=== PATIENT | female | born 1950 | race Caucasian/White ===

== ENCOUNTER → 2017-07-22 | Outpatient (CLI) | payer OTHER ==
--- NOTE | 2017-07-22 17:48 | RAD ---
EXAM: 1. Sternum 2 views. 2. Bilateral ribs 3 views. HISTORY: Chest pain after a fall. COMPARISON: None. FINDINGS: No displaced sternal fracture is identified. There are no displaced rib fractures bilaterally. The inspiration is small with bibasilar atelectasis. There is no pneumothorax or clear pleural effusion. There are atherosclerotic calcifications of the aorta. Cholecystectomy clips are noted. The heart is not enlarged. IMPRESSION: 1. No displaced sternal or rib fractures. 2. Small inspiration with basilar atelectasis.
--- NOTE | 2017-07-22 17:49 | RAD ---
EXAM: 1. Left wrist 4 views. 2. Left hand 3 views. HISTORY: Left hand/wrist pain after a fall. COMPARISON: None. FINDINGS: Osteopenia is moderate. 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 It is also mild at the 2nd and 3rd metacarpophalangeal joints. Alignment in the hand is maintained. No fractures are identified. No fractures are appreciated within the left wrist. Joint spaces and alignment are maintained. IMPRESSION: 1. No fracture.
== END | disposition home or self-care (01) ==
LOC: DXRAD 14:52
PROVIDERS: ATTEND Family Medicine
DX: M19.042 Primary osteoarthritis, left hand (principal); M85.842 Other specified disorders of bone density and structure, left hand
CPT/HCPCS: 71110; 71120; 73110; 73130